=== PATIENT | female | born 1940 | race Caucasian/White ===

== ENCOUNTER → 2016-10-20 | Outpatient (CLI) | payer OTHER | LOC: FIMAGING 07:55 | PROVIDERS: ATTEND Psychiatry & Neurology Neurology | DX: R25.3 Fasciculation (principal); M26.601 Right temporomandibular joint disorder, unspecified ==

== ENCOUNTER → 2016-10-25 | Outpatient (CLI) | payer OTHER ==
--- NOTE | 2016-10-28 12:15 | CPEEG ---
[f rep st] ELECTROENCEPHALOGRAM DATE OF STUDY: 10/25/2016 DATE OF INTERPRETATION: 10/28/16. INTERPRETATION: Normal EEG during wakefulness and drowsiness. There were no potentially epileptoge mariann abnormalities present during the recording. REPORT: This EEG contains 9-10 Hz alpha activity to the posterior head regions. There is no elevat ion at rest, during photic stimulation, or hyperventilation. The patient became drowsy during the s tudy. There was no abnormal activation during drowsiness or during times of arousal. /[id number]/MODL
== END ==
LOC: FCPNEURO 14:16
PROVIDERS: ATTEND Psychiatry & Neurology Neurology
DX: R25.3 Fasciculation (principal)

== ENCOUNTER → 2017-02-21 | Outpatient (CLI) | payer OTHER | LOC: BMCIMAGING 14:50 | PROVIDERS: ATTEND Internal Medicine | DX: Z12.31 Encounter for screening mammogram for malignant neoplasm of breast (principal) | CPT/HCPCS: G0202 ==

== ENCOUNTER → 2017-02-24 | Outpatient (CLI) | payer OTHER | LOC: BMCIMAGING 11:09 | PROVIDERS: ATTEND Internal Medicine | DX: Z13.820 Encounter for screening for osteoporosis (principal); Z78.0 Asymptomatic menopausal state ==

== ENCOUNTER → 2017-10-17 | Outpatient (CLI) | payer OTHER | LOC: FIMAGING 07:22 | PROVIDERS: ATTEND Internal Medicine | DX: D30.01 Benign neoplasm of right kidney (principal) ==